=== PATIENT | male | born 1970 ===

== ENCOUNTER 2024-07-31 10:41 | Outpatient (CLI) | payer OTHER, SELFPAY ==
--- NOTE | ~2024-07-31 | MR_ITS ---
MRI of the left knee Clinical history: Pain, meniscal tear Technique: Coronal proton density and proton density-weighted images, sagittal proton-density and T2 fat-sat images, and axial proton-density fat-saturated images were acquired. Findings: Anterior and posterior cruciate ligaments are intact. Probable element of mucoid degenerati ve change of the ACL. Medial collateral ligament is intact. Lateral collateral ligament complex intac t. Popliteus tendon is intact. There is a radial/vertical tear at the posterior root of the medial meniscus. There is superimposed p robable horizontal tear in the posterior horn and body of medial meniscus. No definite lateral menisc al tear seen. There is focal grade 4 chondral fissure along the medial patellar facet. There is moderate to high-gr jay chondral malacia the inferior aspect of the femoral trochlea centrally. There is high-grade chond ral malacia along the medial femoral condyle, with subchondral reactive marrow edema. Articular carti keshia in the lateral compartment is well preserved. Extensor mechanism is intact. Small to moderate joint effusion present. There is small to moderate Ba ker's cyst with probable prior cyst rupture. Impression: Radial tear at the posterior the medial meniscus with probable superimposed horizontal tear of the po sterior horn and body. 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 High-grade chondromalacia of the patella, femoral trochlea, and the medial femoral condyle, as detail ed above. Small to moderate joint effusion with [id number] Vallecillo's cyst, with probable prior cyst ruptur e. Reviewed, dictated and finalized at [facility]. Impression: Radial tear at the posterior the medial meniscus with probable superimposed hor izontal tear of the posterior horn and body. 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 High-grade chondromalacia of the patella, femoral trochlea, and the medial femo ral condyle, as detailed above. Small to moderate joint effusion with [id number] Vallecillo's cyst, with prob able prior cyst rupture.
== END 2024-07-31 10:42 | disposition home or self-care (01) ==
PROVIDERS: PCP Family Medicine; Visit Provider Nurse Practitioner
DX: S83.232A Complex tear of medial meniscus, current injury, left knee, initial encounter (principal); S83.412A Sprain of medial collateral ligament of left knee, initial encounter; M94.262 Chondromalacia, left knee; M25.462 Effusion, left knee; M71.22 Synovial cyst of popliteal space [Baker], left knee
CPT/HCPCS: 73721